=== PATIENT | male | born 2000 ===

== ENCOUNTER 2020-08-21 22:47 | Emergency (ER) | payer OTHER ==
[~2020-08-21] VITALS: Ht 185.4 cm; Wt 81.6 kg
[2020-08-21] MEDS ORDERED: IBUPROFEN600 M1 ORAL (22:52)
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
[2020-08-21 23:30] VITALS: BP 126/77
[2020-08-21 23:45] VITALS: BP 130/87
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
== END 2020-08-21 23:45 | disposition home or self-care (01) ==
LOC: EDBD 22:47 → EMR 23:41
DX: S00.83XA Contusion of other part of head, initial encounter (principal); S00.81XA Abrasion of other part of head, initial encounter; W19.XXXA Unspecified fall, initial encounter; Y92.512 Supermarket, store or market as the place of occurrence of the external cause
CPT/HCPCS: 70450; 99284